=== PATIENT | female | born 1990 | race Hispanic/Latino ===

== ENCOUNTER 2021-12-15 11:32 | Outpatient (CLI) | payer OTHER, SELFPAY ==
--- NOTE | ~2021-12-15 | XR_ITS ---
XR ankle LT 2V DATE: 12/15/2021 12:23 INDICATION: Left ankle TECHNIQUE: 2 views COMPARISON: None FINDINGS: No fracture or dislocation of the ankle or disruption of the ankle mortise. No periosteal reaction or bone destruction. IMPRESSION: Negative Reviewed, dictated and finalized at location A. RIMENTAL PSYCHOLOGIST IMPRESSION: Negative
--- NOTE | ~2021-12-15 | XR_ITS ---
XR lumbar spine 2-3V 12/15/2021 12:23 Indication: 2 views lumbar spine Procedure: No prior studies for comparison. Comparison: No prior studies for comparison. Findings: No fracture, subluxation or dislocation. Vertebral body heights and disc heights are mainta ined. No evidence for spondylolisthesis. Pedicles intact. Impression: 1: No significant abnormality of the lumbar spine. Reviewed, dictated and finalized at location A. CY SERVICE COORDINATOR Impression: 1: No significant abnormality of the lumbar spine.
--- NOTE | ~2021-12-15 | XR_ITS ---
XR elbow LT 2V DATE: 12/15/2021 12:23 INDICATION: Pain TECHNIQUE: AP and lateral views COMPARISON: None FINDINGS: No fracture or dislocation, periosteal reaction or bone destruction. No joint effusion. IMPRESSION: Negative Reviewed, dictated and finalized at location A. GER FUND IMPRESSION: Negative
--- NOTE | ~2021-12-15 | XR_ITS ---
XR hip RT min 2V 12/15/2021 12:23 Indication: Right hip pain Procedure: 2 views right hip Comparison: No prior studies for comparison. Findings: There is anatomic alignment. No significant joint space narrowing. No fracture or traumatic malalignment. No soft tissue abnormality. No foreign bodies. Impression: 1: No significant bone or joint abnormality. Reviewed, dictated and finalized at location A. INSPECTOR Impression: 1: No significant bone or joint abnormality.
--- NOTE | ~2021-12-15 | XR_ITS ---
XR foot RT 2V 12/15/2021 12:23 Indication: Joint pain Procedure: 2 views right foot Comparison: No prior studies for comparison. Findings: No fracture, subluxation or dislocation. There is anatomic alignment. No soft tissue abnorm ality. No foreign bodies. Impression: 1: No significant bone or joint abnormality. Reviewed, dictated and finalized at location A. LOG LIBRARY ASSISTANT Impression: 1: No significant bone or joint abnormality.
--- NOTE | ~2021-12-15 | XR_ITS ---
XR foot LT 2V 12/15/2021 12:24 Indication: Left foot pain Procedure: 2 views left foot Comparison: No prior studies for comparison. Findings: No fracture, subluxation or dislocation. Lisfranc joint intact. No focal soft tissue abnorm ality. No foreign bodies. Impression: 1: No acute bone or joint abnormality. Reviewed, dictated and finalized at location A. ICAL ASSOC Impression: 1: No acute bone or joint abnormality.
--- NOTE | ~2021-12-15 | XR_ITS ---
XR knee LT 2V 12/15/2021 12:24 Indication: Left knee pain Procedure: 2 views left knee Comparison: No prior studies for comparison. Findings: There is anatomic alignment. No significant joint space narrowing. No fracture or traumatic malalignment. No soft tissue abnormality. No foreign bodies. Impression: 1: No significant bone or joint abnormality. Reviewed, dictated and finalized at location A. FORCE ANALYST Impression: 1: No significant bone or joint abnormality.
--- NOTE | ~2021-12-15 | XR_ITS ---
XR elbow RT 2V DATE: 12/15/2021 12:23 INDICATION: Pain TECHNIQUE: AP and lateral views COMPARISON: None FINDINGS: No fracture or dislocation or joint effusion. No periosteal reaction or bone destruction. IMPRESSION: Negative Reviewed, dictated and finalized at location A. ECTOR DIALS IMPRESSION: Negative
--- NOTE | ~2021-12-15 | XR_ITS ---
XR knee RT 2V 12/15/2021 12:24 Indication: Right knee pain Procedure: 2 views right knee Comparison: No prior studies for comparison. Findings: There is anatomic alignment. No significant joint space narrowing. No fracture or traumatic malalignment. No soft tissue abnormality. No foreign bodies. Impression: 1: No significant bone or joint abnormality. Reviewed, dictated and finalized at location A. CTOR OF MEDICAL EDUCATION Impression: 1: No significant bone or joint abnormality.
--- NOTE | ~2021-12-15 | XR_ITS ---
XR shoulder RT min 2V 12/15/2021 12:23 INDICATION: Right shoulder pain PROCEDURE: 2 views right shoulder COMPARISON: No prior studies for comparison. FINDINGS: Fracture, dislocation or subluxation is not identified. The soft tissues appear within norm al limits. No foreign bodies are identified. IMPRESSION: 1: NO ACUTE BONE OR JOINT ABNORMALITY IDENTIFIED. Reviewed, dictated and finalized at location A. ASSEMBLER
--- NOTE | ~2021-12-15 | XR_ITS ---
XR hip LT min 2V 12/15/2021 12:23 Indication: Left hip pain Procedure: 2 views left hip Comparison: No prior studies for comparison. Findings: No fracture, subluxation or dislocation. No significant joint space narrowing. No soft tiss ue abnormality. No foreign bodies. Impression: 1: No significant bone or joint abnormality. Reviewed, dictated and finalized at location A. GHT BRAKE OPERATOR Impression: 1: No significant bone or joint abnormality.
--- NOTE | ~2021-12-15 | XR_ITS ---
XR ankle RT 2V DATE: 12/15/2021 12:23 INDICATION: Right ankle pain TECHNIQUE: 2 views COMPARISON: None FINDINGS: No fracture or dislocation of the ankle or disruption of the ankle mortise. IMPRESSION: Negative Reviewed, dictated and finalized at location A. CAL RECORDS SECRETARY IMPRESSION: Negative
--- NOTE | ~2021-12-15 | XR_ITS ---
XR shoulder LT min 2V 12/15/2021 12:23 INDICATION: Left shoulder pain PROCEDURE: 2 views left shoulder COMPARISON: No prior studies for comparison. FINDINGS: Fracture, dislocation or subluxation is not identified. The soft tissues appear within norm al limits. No foreign bodies are identified. IMPRESSION: 1: NO ACUTE BONE OR JOINT ABNORMALITY IDENTIFIED. Reviewed, dictated and finalized at location A. ONAL ACCOUNTS RECRUITER
== END 2021-12-15 11:33 | disposition home or self-care (01) ==
PROVIDERS: PCP Registered Nurse; Visit Provider Registered Nurse
DX: M25.50 Pain in unspecified joint (principal)
CPT/HCPCS: 72100; 73030; 73070; 73502; 73560; 73600; 73620

== ENCOUNTER 2021-12-16 11:19 | Outpatient (CLI) | payer OTHER, SELFPAY ==
[2021-12-16 12:06] LABS: Albumin Level 4.2 g/dL (3.5-5.1); Anion Gap 8 mmol/L (8-16); Blood Urea Nitrogen 14 mg/dL (7-17); Carbon Dioxide 29 mmol/L (22-30); Chloride 106 mmol/L (98-107); Estimated Glomerular Filt Rate > 60; Glucose 88 mg/dL (65-110); Phosphorus 3.9 mg/dL (2.5-4.5); Potassium 3.6 mmol/L (3.4-5.0); Sodium 143 mmol/L (137-145)
[2021-12-18 11:32] LABS: Rheumatoid Factor < 8.6 IU/ML (<12)
== END 2021-12-16 11:20 | disposition home or self-care (01) ==
LOC: ANHLAB 11:21
PROVIDERS: PCP Registered Nurse; Visit Provider Registered Nurse
DX: M25.50 Pain in unspecified joint (principal)
CPT/HCPCS: 36415; 80069; 86430